=== PATIENT | female | born 1945 | race Caucasian/White ===

== ENCOUNTER 2022-11-19 12:29 | Emergency (ER) | payer MEDICARE, MEDICAID, SELFPAY ==
[2022-11-19 12:38] VITALS: BP 135/75; PULSE 91; RESP 14; TEMP 36.7; O2SAT 93; BMI 23.3
[2022-11-19 12:42] VITALS: BP 134/83; PULSE 82; O2SAT 95
--- NOTE | 2022-11-19 12:49 | ED_ITS ---
HPI - General Adult General: Chief complaint: Recheck/Abnormal Lab/Rx Stated complaint: high blood sugar sent by PCP Time Seen by Provider: 11/19/22 12:39 Source: patient Mode of arrival: ambulatory Limitations: no limitations History of Present Illness: Patient is a 77-year-old female with past medical history of hypertension, COPD, CHF, acid reflux, and recently diagnosed type 2 diabetes who presents to the emergency department sent by PCP due to hyperglycemia. Patient was recently diagnosed with type 2 diabetes and was started on metformin, initially 500 mg recently bumped up to 1000 mg once daily. She states she was not started on insulin, but at an office visit yesterday she was started on Farxiga. Last night she reports obtaining a blood sugar of 400+, and today recorded a blood sugar of 364 prior to presenting to the emergency room. Only complaint at this time is some dizziness. Family states dizziness has been present over the past 4 to 6 months. She states dizziness is only present when she is up and walking stating she notices it a lot when she checks the mail or when she checks on the chickens. States it is accompanied by shortness of breath. Patient states her last echocardiogram for her CHF was years ago and is not sure on these results. She states she is somewhat chronically short of breath due to her COPD. Patient denies chest pain, palpitations. She has not noticed any lower extremity swelling, orthopnea, or PND. She denies any nausea, vomiting, diarrhea, headache, skin lesions, confusion, or any other symptoms. Onset (ago): day(s) Associated symptoms: Reports dyspnea; Deny chest pain, headache(s), malaise, nausea, rash, palpitations, syncope or vomiting Treatments prior to arrival: none Review of Systems Const: Denies: fever(s), chills, body aches, change in appetite, fatigue or malaise Eyes: Denies: change in vision or blurry vision Card: Denies: chest pain, palpitations, irregular heart rhythm, lightheadedness, syncope or dyspnea on exertion Resp: Reports: dyspnea; Denies: productive cough or pain on inspiration GI: Denies: abdominal pain, nausea, vomiting, heartburn or diarrhea : Denies: flank pain, difficulty voiding, dysuria, urinary frequency, urinary urgency or urinary hesitancy Musc: Denies: neck pain, back pain, extremity pain, extremity swelling or joint pain Skin/Breast: Denies: rash Neuro: Reports: dizziness; Denies: headache(s), numbness in extremities, weakness in extremities or sensory changes Endo: Reports: polyuria and other (Reports hyperglycemia) Physical Exam Const: COMMON NORMALS: no acute distress, average body habitus, patient oriented x3, no limitations, healthy appearing, alert and well nourished ORIENTATION/CONSCIOUSNESS: Yes awake, Yes oriented to person, Yes oriented to place and Yes oriented to time HENMT: COMMON NORMALS: normocephalic and atraumatic HEAD & SCALP: normal to inspection, normocephalic and atraumatic Neck/C-Spine: COMMON NORMALS: full ROM, no lymphadenopathy, supple and no meningeal signs Chest: COMMONS NORMALS: normal inspection of the chest Resp: COMMON NORMALS: normal respiratory effort and clear to auscultation bilaterally AUSCULTATION: clear to auscultation bilaterally Cardio: COMMON NORMALS: regular rate and regular rhythm RATE: regular rate RHYTHM: regular rhythm GI: COMMON NORMALS: Normal to inspection, nondistended, normoactive bowel sounds present, Soft to palpation, No hepatosplenomegaly present and no masses PALPATION: Yes Soft to palpation, Yes Tenderness to palpation present (GI) (Mild diffuse tenderness to palpation), Yes No hepatosplenomegaly present and Yes Hernia present umbilical : COMMON NORMALS: Yes no CVA tenderness BLADDER/KIDNEY EXAM: Yes no CVA tenderness EXTERNAL FEMALE EXAM: Yes Hernia present Back/Pelvis: COMMON NORMALS: no CVA tenderness and thoracic and lumbar spine normal to inspection Extremity: COMMON NORMALS: normal to inspection Neuro: EDA COMA SCALE: document GCS findings Eda coma scale eye opening: Spontaneous Eda coma scale verbal response: Orientated Eda coma scale motor response: Obey commands Eda coma scale total score: 15 COMMON NORMALS: patient oriented x3 and no sensory deficits noted SENSORIUM/ORIENTATION: Yes alert, Yes oriented to person, Yes oriented to place and Yes oriented to time MENINGEAL SIGNS: Yes no meningeal signs Skin: COMMON NORMALS: no rashes or lesions noted GENERAL SKIN EXAM: no rashes or lesions noted Course Vital Signs: Vital signs: Vital Signs Temperature 98.1 F 11/19/22 12:38 Pulse Rate 80 11/19/22 14:30 Respiratory Rate 14 11/19/22 14:30 Blood Pressure 129/68 11/19/22 14:30 Pulse Oximetry 98 11/19/22 14:30 Oxygen Delivery Me thod Room Air 11/19/22 12:42 MDM - General Adult Medical Decision Making Patient is a very nice 77-year-old female presents to ED today after [facility] for concerns of hyperglycemia. On arrival to the ED she is fairly asymptomatic but does complain of some mild dizziness that she and family state has been present over the past 4 to 6 months. She tells me dizziness is really only present with walking and exertion. It is usually accompanied with shortness of breath. It seems to alleviate with rest. She denies chest pain or palpitations. She has known CHF. Last echocardiogram was years ago. She does not complain of any lower extremity swelling, PND, orthopnea. She does not appear fluid overloaded at this time. Patient states she has not been checking her blood sugars at home but recently got a glucometer so we will start doing this. Glucose here upon arrival to 260s?280s. She is down in the 230s with 500 mL of fluid. She has no evidence of DKA. She was started on Farxiga yesterday. I think it is reasonable to give this medication time to lower blood glucose. Recommend she keep a log and follow-up with primary care. We also discussed possibly obtaining outpatient echocardiogram to obtain current EF given her dizziness and shortness of breath symptoms. Return ED precautions given. Lab Data 11/19/22 12:59 11/19/22 12:59 Laboratory Results WBC 9.1 10^3/uL (4.0-10.0) 11/19/22 12:59 RBC 4.91 10^6/uL (4.1-5.3) 11/19/22 12:59 Hgb 11.9 g/dL (11.5-15.3) 11/19/22 12:59 Hct 37.7 % (37.0-47.0) 11/19/22 12:59 MCV 76.8 fl (81-99) L 11/19/22 12:59 MCH 24.2 pg (28.0-34.0) L 11/19/22 12:59 MCHC 31.6 g/dL (30.0-36.0) 11/19/22 12:59 RDW 13.7 % (12.1-15.1) 11/19/22 12:59 Plt Count 380 10^3/cmm (130-400) 11/19/22 12:59 MPV 9.2 fL (7.4-10.4) 11/19/22 12:59 Neut % (Auto) 77.5 % 11/19/22 12:59 Lymph % (Auto) 14.0 % 11/19/22 12:59 [place] % (Auto) 7.6 % 11/19/22 12:59 Eos % (Auto) 0.1 % 11/19/22 12:59 Baso % (Auto) 0.2 % 11/19/22 12:59 Neut # (Auto) 7.01 10^3/uL (1.8-7.7) 11/19/22 12:59 Lymph # (Auto) 1.3 10^3/uL (0.8-4.8) 11/19/22 12:59 [place] # (Auto) 0.7 10^3/uL (0.2-0.9) 11/19/22 12:59 Eos # (Auto) 0.0 10^3/uL (0.0-0.8) 11/19/22 12:59 Baso # (Auto) 0.0 10^3/uL (0.0-0.1) 11/19/22 12:59 Nucleated RBC % (auto) 0 % 11/19/22 12:59 Nucleated RBCs # 0.0 /100WBC 11/19/22 12:59 Sodium 137 mmol/L (136-145) 11/19/22 12:59 Potassium 4.6 mmol/L (3.5-5.1) 11/19/22 12:59 Chloride 98 mmol/L (98-107) 11/19/22 12:59 Carbon Dioxide 26 mmol/L (22-29) 11/19/22 12:59 Anion Gap 17.6 (5-19) 11/19/22 12:59 BUN 22 mg/dL (8-23) 11/19/22 12:59 Creatinine 0.9 mg/dL (0.5-0.9) 11/19/22 12:59 GFR Calculation Not Reportable 11/19/22 12:59 Glucose 281 mg/dL (65-115) H 11/19/22 12:59 POC Glucose 238 mg/dL (70-110) H 11/19/22 13:55 Calculated Osmolality 297 mOsm/kg (285-295) H 11/19/22 12:59 Calcium 10.5 mg/dL (8.5-10.5) 11/19/22 12:59 Total Bilirubin 0.5 mg/dL (0.15-1.2) 11/19/22 12:59 AST 16 U/L (0-32) 11/19/22 12:59 ALT 20 U/L (0-33) 11/19/22 12:59 Alkaline Phosphatase 122 U/L (35-105) H 11/19/22 12:59 Total Protein 7.7 g/dL (6.6-8.7) 11/19/22 12:59 Albumin 4.9 g/dL (3.5-5.2) 11/19/22 12:59 Globulin 2.8 g/dL (1.3-4.6) 11/19/22 12:59 Discharge Plan Discharge Patient Disposition: Home Clinical Impression: Hyperglycemia due to type 2 diabetes mellitus Qualifiers: 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 use: without knitted goods shaper use Qualified Code(s): E11.65 - Type 2 diabetes mellitus with hyperglycemia Condition: Stable Prescriptions: No Action lisinopril-hydrochlorothiazide 20-25 mg tablet 1 tab PO DAILY potassium chloride 10 mEq capsule, extended release 10 meq PO DAILY pantoprazole 40 mg tablet,delayed release (DR/EC) 40 mg PO DAILY metformin 1,000 mg tablet 1,000 mg PO DAILY Farxiga 10 mg tablet 10 mg PO DAILY levothyroxine 125 mcg tablet 125 mcg PO DAILY albuterol sulfate 90 mcg/actuation HFA aerosol inhaler 2 inh INHALATION Q4H PRN (Reason: Shortness Of Breath) Discharge Orders: Discharge ED (Routine); Ordered 11/19/22 Ordered By: Taya Lopez Patient Instructions: Diabetic Hyperglycemia (ED) Activity Restrictions/Additional Instructions: As we discussed keep a detailed blood glucose log, and follow-up with primary care in the next 1 to 2 weeks discuss any further medication or dosing changes. As we discussed, I think it is reasonable to speak to your primary care provider in regards to the shortness of breath and dizziness given your history of congestive heart failure. Echocardiogram may be indicated on an outpatient basis. Coding Level of Care Code ED Injection Molder for Roger Quezada
[2022-11-19] MEDS: sodium chloride 0.9% 1,000 ML 999 ML IV (13:03)
[2022-11-19 13:22] LABS: Basophils % 0.2 %; Eosinophils % 0.1 %; Hematocrit 37.7 % (37.0-47.0); Hemoglobin 11.9 g/dL (11.5-15.3); Lymphocytes # 1.3 10^3/uL (0.8-4.8); Mean Corpuscular HGB Conc 31.6 g/dL (30.0-36.0); Mean Corpuscular Hemoglobin 24.2 pg (28.0-34.0); Mean Corpuscular Volume 76.8 fl (81-99); Mean Platelet Volume 9.2 fL (7.4-10.4); Monocytes # 0.7 10^3/uL (0.2-0.9); Monocytes % 7.6 %; Neutrophils # 7.01 10^3/uL (1.8-7.7); Neutrophils % 77.5 %; Nucleated Red Blood Cells % 0 %; Platelet Count 380 10^3/cmm (130-400); Red Blood Count 4.91 10^6/uL (4.1-5.3); Red Cell Distribution Width 13.7 % (12.1-15.1); White Blood Count 9.1 10^3/uL (4.0-10.0)
--- NOTE | 2022-11-19 13:26 | ECG_ITS ---
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 Measurements Intervals [place] Rate: 72 P: 66 DC: 165 QRS: 37 QRSD: 95 T: 44 QT: 383 QTc: 421 Interpretive Statements SINUS RHYTHM No previous ECG available for comparison Electronically Signed On 11-19-2022 17:45:05 CDT by Dakotah Moody M.D. [email or web address]
[2022-11-19 13:29] VITALS: BP 134/83; PULSE 74; O2SAT 95
[2022-11-19 13:29] LABS: Alanine Aminotransferase 20 U/L (0-33); Albumin Level 4.9 g/dL (3.5-5.2); Alkaline Phosphatase 122 U/L (35-105); Anion Gap 17.6 (5-19); Aspartate Amino Transferase 16 U/L (0-32); Blood Urea Nitrogen 22 mg/dL (8-23); Calcium 10.5 mg/dL (8.5-10.5); Carbon Dioxide 26 mmol/L (22-29); Chloride 98 mmol/L (98-107); Creatinine Clr Calc Pharmacy 45.7734; Globulin 2.8 g/dL (1.3-4.6); Glucose 281 mg/dL (65-115); Osmolality Calculated 297 mOsm/kg (285-295); Potassium 4.6 mmol/L (3.5-5.1); Sodium 137 mmol/L (136-145); Total Bilirubin 0.5 mg/dL (0.15-1.2); Total Protein 7.7 g/dL (6.6-8.7)
[2022-11-19 14:00] VITALS: BP 129/68; PULSE 77; O2SAT 96
[2022-11-19 14:21] LABS: Glucose Point of Care 265 mg/dL (70-110)
[2022-11-19 14:21] LABS: Glucose Point of Care 238 mg/dL (70-110)
[2022-11-19 14:30] VITALS: BP 129/68; PULSE 80; RESP 14; O2SAT 98
--- NOTE | 2022-11-22 11:50 | DCPLANNER ---
artist and repertoire manager called patient due to no primary care physician - no answer at this time
--- NOTE | 2022-12-18 12:42 | DCPLANNER ---
asset protection manager called patient due to no primary care physician - patient states that she sees Dr. Manuel Sutherland at [facility]
== END 2022-11-19 14:32 | disposition home or self-care (01) ==
PROVIDERS: Emergency Medicine; Emergency Provider Physician Assistant; PCP Family Medicine
DX: E11.65 Type 2 diabetes mellitus with hyperglycemia (principal); I11.0 Hypertensive heart disease with heart failure; I50.9 Heart failure, unspecified; J44.9 Chronic obstructive pulmonary disease, unspecified; Z79.84 Long term (current) use of oral hypoglycemic drugs
CPT/HCPCS: 36416; 80053; 82962; 85025; 93005; 96360; 99284; J7030

== ENCOUNTER → 2024-02-13 08:32 | Outpatient (BNVA) | payer MEDICARE, MEDICAID, SELFPAY | PROVIDERS: PCP Family Medicine; Visit Provider Nurse Practitioner Family | DX: L57.8 Other skin changes due to chronic exposure to nonionizing radiation (principal); L30.9 Dermatitis, unspecified; L81.4 Other melanin hyperpigmentation; L82.1 Other seborrheic keratosis | CPT/HCPCS: 11104; 99203 ==

== ENCOUNTER → 2024-02-23 13:13 | Outpatient (BNVA) | payer MEDICARE, MEDICAID, SELFPAY | PROVIDERS: PCP Family Medicine; Visit Provider Nurse Practitioner Family | DX: T88.7XXA Unspecified adverse effect of drug or medicament, initial encounter (principal); Z48.02 Encounter for removal of sutures; X58.XXXA Exposure to other specified factors, initial encounter | CPT/HCPCS: 99213 ==

== ENCOUNTER 2024-07-15 09:44 | Outpatient (CLI) | payer MEDICARE, MEDICAID, SELFPAY ==
--- NOTE | 2024-07-15 10:00 | MM_ITS ---
WS: [id number] SCREENING DIGITAL BREAST TOMOSYNTHESIS MAMMOGRAM WITH CAD HISTORY: SCREENING COMPARISON: None available. Bilateral CC and MLO with tomosynthesis and synthetic mammography submitted. Computer aided detection analyzed. Breast composition: There are scattered areas of fibroglandular density. 2 asymmetries noted within the LEFT breast. On the CC projection and there is a focal asymmetry noted both medial and lateral to the nipple. These are at a middle depth on the lateral projection. Additional bilateral benign vascular calcifications. No distortion. MM/MM scr BI tomosynthesis [id number] IMPRESSION: BI-RADS: 0 - Incomplete: Need additional imaging evaluation. FOLLOW UP: Need Additional Imaging LEFT breast: Spot compression views (CC and MLO). True ML. Ultrasound to follow if abnormality persists.
== END 2024-07-15 09:45 | disposition home or self-care (01) ==
PROVIDERS: PCP Family Medicine; Visit Provider Family Medicine
DX: Z12.31 Encounter for screening mammogram for malignant neoplasm of breast (principal); R92.323 Mammographic fibroglandular density, bilateral breasts; N64.89 Other specified disorders of breast; R92.1 Mammographic calcification found on diagnostic imaging of breast
CPT/HCPCS: 77063; 77067

== ENCOUNTER 2024-08-09 08:15 | Outpatient (CLI) | payer MEDICARE, MEDICAID, SELFPAY ==
--- NOTE | 2024-08-09 08:21 | MM_ITS ---
WS: [id number] ADDITIONAL VIEWS LEFT MAMMOGRAM WITH DIGITAL BREAST TOMOSYNTHESIS. LEFT BREAST ULTRASOUND HISTORY: ABNORMAL MAMMO COMPARISON: 07/15/2024 LEFT MAMMOGRAM: Spot compression views and true ML with digital breast tomosynthesis and SM. Breast composition: There are scattered areas of fibroglandular density. Focal partially obscured masses persist in the medial and lateral LEFT breast at a middle depth after post compression views. These areas measure approximately 5 to 6 mm with the margins being irregular and partially obscured. No associated calcifications. Masses are near the nipple line, 3 and 9:00. LEFT BREAST ULTRASOUND 2-D and color Doppler imaging submitted. At 4:00, 1 cm from the nipple is a very subtle area of mixed echogenicity measuring 0.5 x 0.3 x 0.2 cm which may or may not correspond to the mammographic abnormality. There is an additional small well-circumscribed hypoechoic mass measuring 0.4 x 0.2 x 0.2 cm at 9:00, 2 cm from the nipple which corresponds to the mammographic abnormality. Both of these lesions appear benign. As there are no prior mammograms recommend 6-month follow-up to make sure both of these areas are stable. MM/MM diag LT tomosynthesis [id number] IMPRESSION: BI-RADS: 3 - Probably Benign. FOLLOW UP: 6 Month Follow-up Diagnostic LEFT mammogram 6 months and possible ultrasound.
== END 2024-08-09 08:16 | disposition home or self-care (01) ==
PROVIDERS: PCP Family Medicine; Visit Provider Family Medicine
DX: R92.8 Other abnormal and inconclusive findings on diagnostic imaging of breast (principal); R92.322 Mammographic fibroglandular density, left breast; N63.25 Unspecified lump in the left breast, overlapping quadrants; N63.23 Unspecified lump in the left breast, lower outer quadrant
CPT/HCPCS: 76642; 77061; G0279

== ENCOUNTER 2025-02-21 10:00 | Outpatient (CLI) | payer OTHER, MEDICAID, SELFPAY ==
--- NOTE | 2025-02-21 10:10 | MM_ITS ---
WS: [id number] Diagnostic LEFT MAMMOGRAM WITH DIGITAL BREAST TOMOSYNTHESIS. LEFT breast ultrasound, limited. HISTORY: ABNORMAL MAMMOGRAM OF LEFT BREAST COMPARISON: 08/09/2024 and 07/15/2024 LEFT mammogram breast in CC, MLO projections and true ML submitted with digital breast tomosynthesis and SM. Spot compression LEFT CC and MLO. Breast composition: There are scattered areas of fibroglandular density. Asymmetries in the medial and lateral aspect of the LEFT breast at a middle depth are reidentified. Asymmetries are best identified in the CC projection. The medial asymmetry measures 5 mm. Lateral asymmetry measures 6 mm. No distortion. No increase in size since the prior study. LEFT breast ultrasound, limited. Ultrasound is directed LEFT breast near 2-4 o'clock. No abnormality identified. LEFT breast from 7-10 o'clock is imaged also. There is a lymph node at 7:00 measuring 5 x 7 x 5 mm. MM/MM diag LT tomosynthesis [id number] IMPRESSION: BI-RADS: 3 - Probably Benign. FOLLOW UP: 6 Month Follow-up No interval change in the focal asymmetries in the medial and lateral aspect of the LEFT breast. No definite mammographic abnormalities. There is a lymph node at 7:00 in the LEFT breast. Recommend patient return in 6 months for RIGHT her annual mammogram which should be in July 2024. These areas will be reevaluate d at that time.
== END 2025-02-21 10:01 | disposition home or self-care (01) ==
LOC: RAD 10:02
PROVIDERS: PCP Family Medicine; Visit Provider Family Medicine
DX: R92.8 Other abnormal and inconclusive findings on diagnostic imaging of breast (principal); R59.0 Localized enlarged lymph nodes
CPT/HCPCS: 76642; 77061; 77063